=== PATIENT | male | born 1965 | race Caucasian/White ===

== ENCOUNTER 2017-06-14 08:44 | Inpatient (IN) | payer OTHER ==
[~2017-06-14] VITALS: Ht 182.9 cm; Wt 78.0 kg
[2017-06-14] VITALS (9 sets, daily range): BP systolic 117–125; BP diastolic 62–96; PULSE 66–92; RESP 15–22; TEMP 98–98.4; O2SAT 99–100
[2017-06-14] MEDS ORDERED: ceFAZolin 2 GM PREMIX 50 ML ONE (08:53)
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
[2017-06-14 09:13] LABS: AUTOMATED NEUTROPHIL # 2.7 TH/MM3 (1.8-7.7); BASOPHIL % 0.3 % (0.0-2.0); EOSINOPHIL # 0.1 TH/MM3 (0-0.4); EOSINOPHIL % 2.4 % (0.0-4.0); HEMATOCRIT 43.1 % (39.0-51.0); HEMOGLOBIN 14.6 GM/DL (13.0-17.0); LYMPH % 35.5 % (9.0-44.0); LYMPHOCYTE # 1.9 TH/MM3 (1.0-4.8); MEAN CELL VOLUME 95.4 FL (80.0-100.0); MEAN CORPUSCULAR HEMOGLOBIN 32.4 PG (27.0-34.0); MEAN CORPUSCULAR HGB CONC 33.9 % (32.0-36.0); MEAN PLATELET VOLUME 8.9 FL (7.0-11.0); MONO % 10.1 % (0.0-8.0); MONOCYTE # 0.5 TH/MM3 (0-0.9); NEUT % 51.7 % (16.0-70.0); PLATELET COUNT 215 TH/MM3 (150-450); RED BLOOD COUNT 4.51 MIL/MM3 (4.50-5.90); RED CELL DISTRIBUTION WIDTH 12.5 % (11.6-17.2); WHITE BLOOD COUNT 5.3 TH/MM3 (4.0-11.0)
[2017-06-14] MEDS ORDERED: MIDAZOLAM HCL 5 MG/ML VIAL (1 ML) ONE (09:14)
[2017-06-14 09:23] LABS: PROTHROMBIN TIME - PATIENT 9.8 SEC (9.8-11.6)
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
[2017-06-14] MEDS ORDERED: IOHEXOL 350 MG/ML 10 ML VIAL (for RAD DIAG) IVCONTRAST ONE (09:40)
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
[2017-06-14] MEDS ORDERED: LISI-515 PO (09:54)
[2017-06-14] MEDS ORDERED: HYDR-3580 PO (09:54)
[2017-06-14] MEDS ORDERED: OMEP20TA93 PO (09:54)
[2017-06-14] MEDS ORDERED: ASPI-516 CHEW (09:54)
[2017-06-14] MEDS ORDERED: NAPR500T2 PO (09:54)
[2017-06-14] MEDS ORDERED: AMPH1TAB83 PO (09:54)
[2017-06-14] MEDS ORDERED: CLAR10CA3 PO (09:54)
[2017-06-14] MEDS ORDERED: LORA1TAB12 PO (09:54)
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
[2017-06-14] MEDS ORDERED: MAGNESIUM HYDROXIDE SUSP 30 ML CUP PO PRN (11:30)
[2017-06-14] MEDS ORDERED: LORazepam 1 MG TAB PO PRN ×2 (11:30→14:30)
[2017-06-14] MEDS ORDERED: MISCELLANEOUS NURSING INFORMATION XX SCH (11:30)
[2017-06-14] MEDS ORDERED: ACETAMINOPHEN/HYDROcodone 325 MG/5 MG TAB PO PRN (11:30)
[2017-06-14] MEDS ORDERED: FLUMAZENIL 0.5 MG/5 ML VIAL IV PUSH PRN (11:30)
[2017-06-14] MEDS ORDERED: LORazepam 2 MG TAB PO PRN (11:30)
[2017-06-14] MEDS ORDERED: SODIUM CHLORIDE 0.9% FLUSH 10 ML FLUSH IV FLUSH PRN (11:30)
[2017-06-14] MEDS ORDERED: ONDANSETRON HCL 4 MG/2 ML VIAL IV PUSH PRN (11:30)
[2017-06-14] MEDS ORDERED: LORazepam 2 MG/ML VIAL IV PUSH PRN ×4 (11:30)
[2017-06-14] MEDS ORDERED: CHLORHEXIDINE GLUCONATE 2 % 1 PACK (2 CLOTHS) TOP PRN (11:30)
[2017-06-14] MEDS ORDERED: ENALAPRILAT 1.25 MG/ML VIAL IV PUSH PRN (11:30)
[2017-06-14] MEDS ORDERED: MORPHINE SULFATE 4 MG/ML INJ IV PUSH PRN (11:30)
[2017-06-14] MEDS: BACITRACIN TOP OINT 15 GM TUBE TOP SCH ×2 (12:19→20:47)
[2017-06-14] MEDS: SODIUM CHLOR 0.9% 1000 ML INJ 1,000 ML IV SCH (12:20)
[2017-06-14] MEDS: MULTIVITAMIN TAB PO SCH (12:22)
[2017-06-14] MEDS: FOLIC ACID 1 MG TAB PO SCH (12:22)
[2017-06-14] MEDS: THIAMINE HCL 100 MG TAB PO SCH (12:22)
[2017-06-14] MEDS ORDERED: HALOPERIDOL LACTATE 5 MG/ML AMP IV PUSH PRN (13:15)
[2017-06-14] MEDS: levETIRAcetam INJ 500 MG in SODIUM CHLORIDE 0.9% INJ 100 ML IV SCH (14:30)
[2017-06-14] MEDS: LISINOPRIL 20 MG TAB PO SCH (14:30)
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
[2017-06-14] MEDS: METHOCARBAMOL 500 MG TAB PO SCH ×2 (17:49→20:48)
[2017-06-14] MEDS: ACETAMINOPHEN/HYDROcodone 325 MG/7.5 MG TAB PO PRN (17:49)
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
[2017-06-14] MEDS: DOCUSATE SODIUM 100 MG CAP PO SCH (20:46)
[2017-06-14] MEDS: ACETAMINOPHEN/HYDROcodone 325 MG/10 MG TAB PO PRN (22:15)
[2017-06-15] VITALS: PULSE 74
[2017-06-15 02:00] VITALS: PULSE 77
[2017-06-15] MEDS: levETIRAcetam INJ 500 MG in SODIUM CHLORIDE 0.9% INJ 100 ML IV SCH (02:21)
[2017-06-15 04:00] VITALS: PULSE 78
[2017-06-15] MEDS ORDERED: CHLORHEXIDINE GLUCONATE 2 % 1 PACK (2 CLOTHS) TOP SCH (04:00)
[2017-06-15] MEDS: ACETAMINOPHEN/HYDROcodone 325 MG/10 MG TAB PO PRN ×2 (05:22→10:37)
[2017-06-15] MEDS: METHOCARBAMOL 500 MG TAB PO SCH (05:23)
[2017-06-15 06:00] VITALS: PULSE 70
[2017-06-15 06:36] LABS: ALBUMIN 3.1 GM/DL (3.4-5.0); AST (GOT) 18 U/L (15-37); BLOOD UREA NITROGEN 12 MG/DL (7-18); CALCIUM 8.3 MG/DL (8.5-10.1); CHLORIDE 107 MEQ/L (98-107); CREATININE 0.73 MG/DL (0.60-1.30); GLOMERULAR FILTRATION RATE 112 ML/MIN (>89); GLUCOSE,RANDOM 112 MG/DL (74-106); SODIUM (NA) 140 MEQ/L (136-145)
[2017-06-15 06:40] LABS: ALKALINE PHOSPHATASE 40 U/L (45-117); ALT (GPT) 27 U/L (12-78); TOTAL BILIRUBIN ADULT 0.5 MG/DL (0.2-1.0); TOTAL PROTEIN 5.9 GM/DL (6.4-8.2)
[2017-06-15] MEDS ORDERED: MORPHINE SULFATE 4 MG/ML INJ IV PUSH PRN (07:00)
[2017-06-15] MEDS: SODIUM CHLOR 0.9% 1000 ML INJ 1,000 ML IV SCH (07:18)
[2017-06-15 08:00] VITALS: BP 111/72; PULSE 89; RESP 24; TEMP 98.3; O2SAT 98
[2017-06-15] MEDS: THIAMINE HCL 100 MG TAB PO SCH (08:41)
[2017-06-15] MEDS: FOLIC ACID 1 MG TAB PO SCH (08:41)
[2017-06-15] MEDS: DOCUSATE SODIUM 100 MG CAP PO SCH (08:42)
[2017-06-15] MEDS: LISINOPRIL 20 MG TAB PO SCH (08:42)
[2017-06-15] MEDS: BACITRACIN TOP OINT 15 GM TUBE TOP SCH (08:42)
[2017-06-15] MEDS: MULTIVITAMIN TAB PO SCH (08:42)
[2017-06-15] MEDS: ACETAMINOPHEN/HYDROcodone 325 MG/7.5 MG TAB PO PRN ×2 (08:43→11:23)
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
[2017-06-15] MEDS ORDERED: POLYETHYLENE GLYCOL 17 GM PKG PO SCH (09:00)
[2017-06-15] MEDS ORDERED: DOCUSATE SODIUM 50 MG/SENNA 8.6 MG TAB PO SCH (09:00)
[2017-06-15] MEDS ORDERED: PANTOPRAZOLE SOD 40 MG DELAYED RELEASE TAB PO SCH (09:00)
[2017-06-15] MEDS ORDERED: INFLUENZA VIRUS VACCINE (QUADRIVALENT) 0.5 ML SYR IM ONE (10:00)
--- NOTE | 2017-06-15 11:45 | OTSOAPIP ---
TIME SESSION COMPLETED: 1000 TREATMENT TIME: 0 MINS. CHART REVIEWED. RN REPORTS THAT PATIENT IS INDEPENDENT AND BEING DISCHARGED. NO OCCUPATIONAL THERAPY EVALUATION REQUIRED. Therapist: Carmina Truong OTR/L Signature on file
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
== END 2017-06-15 12:17 | disposition home or self-care (01) | DRG 84 ==
LOC: NEPI 08:44 → EDBD 09:23 → NEDH 09:23 → N03B 10:49
PROVIDERS: ADMIT Surgery; ATTEND Surgery
DX: S06.2X9A Diffuse traumatic brain injury with loss of consciousness of unspecified duration, initial encounter (principal); F41.9 Anxiety disorder, unspecified; S42.121A Displaced fracture of acromial process, right shoulder, initial encounter for closed fracture; M50.30 Other cervical disc degeneration, unspecified cervical region; R41.2 Retrograde amnesia; S80.212A Abrasion, left knee, initial encounter; S80.211A Abrasion, right knee, initial encounter; R40.2411 Glasgow coma scale score 13-15, in the field [EMT or ambulance]; M51.36 Other intervertebral disc degeneration, lumbar region; F12.90 Cannabis use, unspecified, uncomplicated; F10.10 Alcohol abuse, uncomplicated; V29.9XXA Motorcycle rider (driver) (passenger) injured in unspecified traffic accident, initial encounter; Y92.410 Unspecified street and highway as the place of occurrence of the external cause; Y90.0 Blood alcohol level of less than 20 mg/100 ml
CPT/HCPCS: 70450; 71045; 71260; 72125; 72170; 73020; 74177; 80053; 80307; 82435; 82565; 82947; 84132; 84295; 84520; 85025; 85610; 85730; 86850; 86900; 86901; 87641; 90471; 96374; 96375; 99291; G0390; J0690; J1953; J2250; J2270; J2405; J7030; L0150; Q9967

== ENCOUNTER 2017-07-18 04:18 | Inpatient (IN) | payer OTHER ==
[~2017-07-18] VITALS: Ht 182.9 cm; Wt 72.0 kg
[~2017-07-18 04:18] MED LIST: AMPH1TAB83 PO; CLAR10CA3 PO; HYDR-3580 PO; LISI-515 PO; LORA1TAB12 PO; OMEP20TA93 PO
[2017-07-18 04:24] VITALS: BP 145/82; PULSE 97; RESP 17; TEMP 97.8; O2SAT 96
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
[2017-07-18] MEDS ORDERED: ONDANSETRON HCL 4 MG/2 ML VIAL IV ONE ×2 (05:00→12:00)
[2017-07-18] MEDS ORDERED: HYDROmorphone HCL PF 2 MG/ML VIAL IV PUSH ONE (05:00)
[2017-07-18] MEDS: SODIUM CHLOR 0.9% 1000 ML INJ 1,000 ML IV SCH ×2 (05:11→13:00)
[2017-07-18] MEDS ORDERED: HYDROmorphone HCL PF 1 MG/ML VIAL IV PUSH PRN (05:15)
[2017-07-18] MEDS ORDERED: ONDANSETRON HCL 4 MG/2 ML VIAL IV PUSH PRN ×2 (05:15→06:15)
[2017-07-18] MEDS ORDERED: ENALAPRILAT 1.25 MG/ML VIAL IV PUSH PRN (06:15)
[2017-07-18] MEDS ORDERED: ACETAMINOPHEN/HYDROcodone 325 MG/7.5 MG TAB PO PRN ×2 (06:15)
[2017-07-18] MEDS ORDERED: LACTULOSE SYRUP 20 GM/30 ML CUP PO PRN (06:15)
[2017-07-18] MEDS ORDERED: ACETAMINOPHEN 325 MG TAB PO PRN (06:15)
[2017-07-18] MEDS ORDERED: SODIUM CHLORIDE 0.9% FLUSH 10 ML FLUSH IV FLUSH PRN (06:15)
[2017-07-18] MEDS ORDERED: LORazepam 1 MG TAB PO PRN (06:15)
[2017-07-18] MEDS ORDERED: MORPHINE SULFATE 4 MG/ML INJ IV PRN (06:45)
[2017-07-18 07:33] VITALS: O2SAT 98
[2017-07-18 07:35] VITALS: BP 167/90; PULSE 80; RESP 17; O2SAT 99
[2017-07-18] MEDS: POLYETHYLENE GLYCOL 17 GM PKG PO SCH (08:50)
[2017-07-18] MEDS: LORATADINE 10 MG TAB PO SCH (08:50)
[2017-07-18] MEDS: LISINOPRIL 20 MG TAB PO SCH (08:51)
[2017-07-18] MEDS: PANTOPRAZOLE SOD 20 MG DELAYED RELEASE TAB PO SCH (08:51)
[2017-07-18] MEDS ORDERED: DOCUSATE SODIUM 50 MG/SENNA 8.6 MG TAB PO SCH (09:00)
[2017-07-18] MEDS: BACITRACIN TOP OINT 15 GM TUBE TOP SCH (09:00)
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
--- NOTE | 2017-07-18 09:58 | RADRPT ---
EXAM DATE/TIME: 07/18/2017 09:14 [place] COMPARISON: No previous studies available for comparison. INDICATIONS : Fall. Syncope. MEDICAL HISTORY : Hypercholesterolemia. Hypertension. Pulmonary embolism. Substance use. SURGICAL HISTORY : Left inguinal hernia. Right rotator cuff surgery. ENCOUNTER: Initial ACUITY: 2 days PAIN SCORE: 6/10 LOCATION: Bilateral neck PEAK SYSTOLIC VELOCITIES (cm/sec): ICA/CCA RATIO: Right: 1.1 Left: 1.1 ICA: Right: 86 Left: 87 CCA: Right: 76 Left: 79 ECA: Right: 64 Left: 97 VERTEBRAL: Right: 48 antegrade Left: 60 antegrade Elevated flow velocities and ICA/CCA ratios have been found to correlate with increased degrees of vessel stenosis, calculated as percentage of diameter relative to a normal segment of distal ICA/CCA FINDINGS: RIGHT CAROTID: No significant stenosis is visualized. The waveforms are within normal limits. LEFT CAROTID: No significant stenosis is visualized. The waveforms are within normal limits. VERTEBRAL ARTERIES: Antegrade flow is seen in both vertebral arteries. MISCELLANEOUS: None. CONCLUSION: Negative for hemodynamically significant stenosis Manpreet Packer MD FACR on July 18, 2017 at 9:55 Board Certified Radiologist. This report was verified electronically.
[2017-07-18 10:16] VITALS: BP 164/84; PULSE 68; RESP 15; O2SAT 100
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
[2017-07-18] MEDS ORDERED: SODIUM CHLOR 0.9% 250 ML INJ 250 ML IV ONE (12:00)
[2017-07-18] MEDS ORDERED: ESMOLOL HCL 100 MG/10 ML VIAL IV ONE (12:00)
[2017-07-18] MEDS ORDERED: PROPOFOL 200 MG/20 ML AMP IV ONE (12:00)
[2017-07-18] MEDS ORDERED: LIDOCAINE HCL 1% PF 5 ML SYRINGE OTHER ONE (12:00)
[2017-07-18] MEDS ORDERED: LACTATED RINGER'S 1000 ML IV PRN (12:30)
[2017-07-18] MEDS ORDERED: METOPROLOL TARTRATE 25 MG TAB PO PRN (12:30)
[2017-07-18] MEDS ORDERED: POVIDONE IODINE 5% (ANTISEPSIS KIT) 4 APPLICATIONS EACH NARE PRN (12:30)
[2017-07-18] MEDS ORDERED: CHLORHEXIDINE GLUCONATE 2 % 1 PACK (2 CLOTHS) TOPICAL PRN (12:30)
[2017-07-18] MEDS ORDERED: SODIUM CHLORID 0.9% 500 ML IV PRN (12:30)
[2017-07-18] MEDS ORDERED: BUPIVACAINE/EPINEPHRINE 0.5% PF 30 ML VIAL ONE (12:42)
[2017-07-18] MEDS ORDERED: GENTAMICIN SULFATE 80 MG/2 ML VIAL ONE (12:42)
[2017-07-18] MEDS ORDERED: ceFAZolin 2 GM PREMIX 50 ML ONE (13:05)
[2017-07-18] MEDS ORDERED: VANCOMYCIN HCL 1000 MG VIAL ONE (13:05)
[2017-07-18] MEDS: DEXT 5%-NACL 0.45% 1000 ML INJ 1,000 ML IV SCH (14:13)
[2017-07-18] MEDS ORDERED: ACETAMINOPHEN/HYDROcodone 325 MG/10 MG TAB PO PRN (14:15)
[2017-07-18] MEDS ORDERED: MISCELLANEOUS NURSING INFORMATION XX PRN (14:15)
[2017-07-18] MEDS ORDERED: ONDANSETRON HCL 4 MG/2 ML VIAL IVP PRN (14:15)
[2017-07-18] MEDS ORDERED: MAGNESIUM HYDROXIDE SUSP 30 ML CUP PO PRN (14:15)
[2017-07-18] MEDS ORDERED: NALOXONE HCL 0.4 MG/ML AMP IV PUSH PRN (14:15)
[2017-07-18] MEDS ORDERED: MISCELLANEOUS PHARMACY INFORMATION XX ONE (14:15)
[2017-07-18] MEDS ORDERED: Post-op Orders (for Pharmacy) XX ONE (14:15)
[2017-07-18] MEDS ORDERED: diphenhydrAMINE HCL 25 MG CAP PO PRN (14:15)
--- NOTE | 2017-07-18 14:17 | PD.OP ---
cc: Bismark Barton MD Operative Report Date of Surgery: Jul 18, 2017 Preoperative Diagnosis: Left distal radius, intra-articular comminuted fracture, 3 part Postoperative Diagnosis: Same Procedure: LEFT distal radius open reduction and internal fixation of three-part intra- articular fracture. Anesthesia: Gen. Surgeon: Bismark Barton Service Liaison Representative(s): JOSE Raymundo The surgical procedure was assisted by my Advanced Registered Nurse Practitioner. My PERSONAL LINES INSURANCE ADVISOR presence was necessary throughout this case for the manipulation and positioning of the surgical extremity. My PERSONAL LINES INSURANCE ADVISOR was assisting me throughout the duration of this procedure. The skill set of an Advance Registered Nurse Practitioner was medically necessary to complete this procedure. During the surgical case, the photocopier technician was working at the back table and the Advance Registered Nurse Practitioner was directly assisting me. Operation and Findings: Tourniquet time: 21 minutes at 250 mmHg of pressure Estimated blood loss: 10 cc The patient received intravenous vancomycin and Ancef. After the appropriate anesthesia was administered, the patient's arm was prepped and draped in the usual sterile fashion. Local anesthetic was given, and the arm was exsanguinated. The tourniquet was raised to 250 mmHg of pressure. We made a standard incision over the volar aspect of the forearm. We then dissected through the flexor carpi radialis sub- sheath. The pronator quadratus was reflected. We now visualized the distal radius fracture very well. The fracture was anatomically reduced both visually and via fluoroscopy. We provisionally held the fracture reduced and then applied a large Synthes precontoured distal radius plate into the appropriate position. The plate was secured to the distal radius first with the sliding screw hole. This was then followed by locking screws distally and proximally. We took final fluoroscopic imaging of the wrist. We found no intra-articular penetration of the screws. The patient had full range of motion of the wrist with no crepitus. The tourniquet was released and hemostasis was achieved. The patient had a 2+ radial pulse. We irrigated the incision thoroughly. We then closed skin with 2 -0 Vicryl followed by 3-0 nylon. The arm was dressed and a volar splint was applied. The postoperative plan is to start early range of motion of the wrist. Bismark Barton MD Jul 18, 2017 14:17
[2017-07-18] MEDS ORDERED: HYDR-3583 PO (14:18)
[2017-07-18] MEDS ORDERED: MIDAZOLAM HCL 2 MG/2 ML VIAL ONE ×2 (14:36→14:51)
[2017-07-18] MEDS ORDERED: DO NOT ADM ANY ANTICOAGULANT DRUGS PRN (14:40)
--- NOTE | 2017-07-18 15:06 | RADRPT ---
EXAM DATE/TIME: 07/18/2017 14:01 [facility] COMPARISON: No previous studies available for comparison. INDICATIONS : Reduction with screw and plate placement left wrist. MEDICAL HISTORY : Hypercholesterolemia. Hypertension. Pulmonary embolism. Substance use. SURGICAL HISTORY : Left inguinal hernia. Right rotator cuff surgery. ENCOUNTER: Subsequent ACUITY: 1 day PAIN SCORE: Non-responsive. LOCATION: Left Wrist. FINDINGS: Plaque with screws is seen bridging the fracture distal radius. Limited anatomic. Screw is seen syed dging the base of the first metacarpal. CONCLUSION: Anatomic alignment. Manpreet Packer MD FACR on July 18, 2017 at 15:03 Board Certified Radiologist. This report was verified electronically.
[2017-07-18] MEDS ORDERED: *morphine SULFATE 10 MG/ML PERIprocedure ONLY ONE (15:23)
[2017-07-18] MEDS ORDERED: *MEPERIDINE 25 MG INJ VIAL PERIprocedural Use ONLY ONE (15:27)
[2017-07-18] MEDS ORDERED: HYDROmorphone HCL PF 2 MG/ML VIAL ONE ×2 (16:23→17:58)
--- NOTE | 2017-07-18 16:53 | OTSOAPIP ---
TIME SESSION COMPLETED: 1645 PATIENT WENT OFF FLOOR FOR SURGERY AND IS STILL NOT ASSIGNED TO A ROOM AT TIME OF ATTEMPT. DOES NOT HAVE A CORRECT CURRENT LOCATION IN ELECTRONIC MEDICAL RECORD. WILL FOLLOW UP WITH PATIENT TOMORROW. INTERDISCIPLINARY COMMUNICATION: REVIEWED ELECTRONIC MEDICAL RECORD, SPOKE WITH FEDERICO CLARK Therapist: Rosie Razo OTR/L Signature on file
--- NOTE | 2017-07-18 19:43 | EKG ---
Date Performed: 07/18/2017 Time Performed: 11:48:31 PTAGE: 52 years EKG: SINUS BRADYCARDIA WITH OCCASIONAL SUPRAVENTRICULAR PREMATURE COMPLEXES MODERATE INTRAVENTRI CULAR CONDUCTION DELAY BORDERLINE ECG NO PREVIOUS TRACING DOCTOR: Anthony Kendall Interpretating Date/Time 07/18/2017 19:42:20
[2017-07-18 19:55] VITALS: BP 178/80; PULSE 65; RESP 18; TEMP 96.6; O2SAT 97
[2017-07-18] MEDS: DOCUSATE SODIUM 50 MG/SENNA 8.6 MG TAB PO SCH (20:00)
[2017-07-18] MEDS: MORPHINE SULFATE 4 MG/ML INJ IV PUSH PRN (20:00)
[2017-07-18] MEDS: ACETAMINOPHEN/HYDROcodone 325 MG/10 MG TAB PO PRN (22:24)
[2017-07-18 23:00] VITALS: BP 153/77; PULSE 65; RESP 18; TEMP 97.5; O2SAT 98
[2017-07-19] VITALS (8 sets, daily range): BP systolic 124–153; BP diastolic 76–91; PULSE 68–97; RESP 17–19; TEMP 97.9–99.6; O2SAT 92–99
[2017-07-19] MEDS: DEXT 5%-NACL 0.45% 1000 ML INJ 1,000 ML IV SCH (03:43)
[2017-07-19 06:13] LABS: AUTOMATED NEUTROPHIL # 7.1 TH/MM3 (1.8-7.7); EOSINOPHIL % 0.1 % (0.0-4.0); HEMATOCRIT 34.8 % (39.0-51.0); HEMOGLOBIN 11.7 GM/DL (13.0-17.0); LYMPH % 11.2 % (9.0-44.0); MEAN CELL VOLUME 96.4 FL (80.0-100.0); MEAN CORPUSCULAR HEMOGLOBIN 32.5 PG (27.0-34.0); MEAN CORPUSCULAR HGB CONC 33.7 % (32.0-36.0); MEAN PLATELET VOLUME 9.2 FL (7.0-11.0); MONO % 8.7 % (0.0-8.0); MONOCYTE # 0.8 TH/MM3 (0-0.9); PLATELET COUNT 181 TH/MM3 (150-450); RED BLOOD COUNT 3.61 MIL/MM3 (4.50-5.90); RED CELL DISTRIBUTION WIDTH 12.1 % (11.6-17.2); WHITE BLOOD COUNT 8.9 TH/MM3 (4.0-11.0)
[2017-07-19] MEDS: MORPHINE SULFATE 4 MG/ML INJ IV PUSH PRN ×2 (08:35→23:47)
[2017-07-19] MEDS: DOCUSATE SODIUM 50 MG/SENNA 8.6 MG TAB PO SCH ×2 (08:40→20:38)
[2017-07-19] MEDS: MULTIVITAMINS/MINERALS THERAPEUTIC TAB PO SCH (08:41)
[2017-07-19] MEDS: PANTOPRAZOLE SOD 20 MG DELAYED RELEASE TAB PO SCH (08:41)
[2017-07-19] MEDS: LISINOPRIL 20 MG TAB PO SCH (08:41)
[2017-07-19] MEDS: POLYETHYLENE GLYCOL 17 GM PKG PO SCH (08:44)
[2017-07-19] MEDS: LORATADINE 10 MG TAB PO SCH (08:46)
[2017-07-19] MEDS: BACITRACIN TOP OINT 15 GM TUBE TOP SCH ×2 (09:00→21:20)
--- NOTE | 2017-07-19 09:15 | RADRPT ---
EXAM DATE/TIME: 07/19/2017 09:01 [facility] COMPARISON: CT BRAIN W/O CONTRAST, June 14, 2017, 8:48. INDICATIONS : Fell 3-4 feet from ladder, landed face first. RADIATION DOSE: 38.68 CTDIvol (mGy) MEDICAL HISTORY : Cardiovascular disease. Hypertension. SURGICAL HISTORY : None. ENCOUNTER: Initial ACUITY: 1 day PAIN SCALE: 3/10 LOCATION: Left facial TECHNIQUE: Multiple contiguous axial images were obtained of the head. Using automated exposure control and adj ustment of the mA and/or kV according to patient size, radiation dose was kept as low as reasonably a chievable to obtain optimal diagnostic quality images. DICOM format image data is available electro nically for review and comparison. FINDINGS: There is a nondepressed fracture involving the left frontal bone that courses along the roof of the l eft orbit. No other fracture is appreciated. Considerable periorbital soft tissue swelling on the lef t. The globe is intact. No retro-bulbar hematoma or fluid. The intracranial contents are unremarkable . No hemorrhage, mass, or acute infarction. There is a small volume pneumocephaly as the left frontal fracture does extend through the left frontal sinus. Mucosal thickening involving the left sphenoid sinus and scattered ethmoid air cells bilaterally. Mastoid air cells are clear. Subcutaneous air with in the left periorbital soft tissues. CONCLUSION: 1. Trauma to the left periorbital region with a fracture that is nondepressed through the left fronta l bone and left roof of orbit generating subcutaneous air and small volume pneumocephaly. No intracra nial hemorrhage. Sven Segura Jr., MD on July 19, 2017 at 9:07 Board Certified Radiologist. This report was verified electronically.
[2017-07-19 09:21] LABS: ALBUMIN 3.2 GM/DL (3.4-5.0); ALT (GPT) 21 U/L (12-78); AST (GOT) 19 U/L (15-37); BICARBONATE 26.2 MEQ/L (21.0-32.0); BLOOD UREA NITROGEN 7 MG/DL (7-18); CALCIUM 8.4 MG/DL (8.5-10.1); CHLORIDE 101 MEQ/L (98-107); CREATININE 0.83 MG/DL (0.60-1.30); GLOMERULAR FILTRATION RATE 97 ML/MIN (>89); GLUCOSE,RANDOM 147 MG/DL (74-106); SODIUM (NA) 135 MEQ/L (136-145)
[2017-07-19 09:24] LABS: ALKALINE PHOSPHATASE 52 U/L (45-117); TOTAL BILIRUBIN ADULT 0.5 MG/DL (0.2-1.0); TOTAL PROTEIN 6.3 GM/DL (6.4-8.2)
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
[2017-07-19] MEDS: ACETAMINOPHEN/HYDROcodone 325 MG/10 MG TAB PO PRN (10:48)
--- NOTE | 2017-07-19 11:53 | MB ---
cc: JAY MILLER D.D.S. DATE OF CONSULTATION: 07/19/2017 1965 REASON FOR CONSULTATION I was asked to evaluate a 52-year-old male who fell off a ladder and landed face first. HISTORY OF PRESENT ILLNESS He originally came to [facility] and was transferred up to [place]. He was taken to the operating room yesterday for orthopedics. My situation, I ordered an orbital scan after evaluating him down in the OR. He has a nondisplaced, nondepressed left frontal bone and a left orbital roof. He has no indication for any surgery. Pupils are equal, round, reactive to light and accommodation. Extraocular muscles are intact. Visual acuity is grossly intact with some swelling obviously and ecchymosis. His maxilla and mandible are intact. He has no surgical intervention from maxillofacial standpoint. Follow him up on an outpatient basis in the office. Any questions regarding the patient's care, please let me know. ALFONSO Santiago/CONTRERAS /11:20 AM /11:30 AM
--- NOTE | 2017-07-19 12:39 | PD.ORT.PN ---
Subjective Post Op Day #: 1 Subjective Remarks Patient is resting in bed in NAD. Patient states he is having some mild pain to the left wrist. Objective Vitals Vital Signs Date Time Temp Pulse Resp B/P (MAP) Pulse Ox O2 Delivery O2 Flow Rate FiO2 07/19/17 12:00 99.0 84 17 124/76 (92) 92 07/19/17 08:00 98.4 68 17 153/88 (109) 99 07/19/17 03:00 97.9 71 18 153/91 (111) 96 07/18/17 23:00 97.5 65 18 153/77 (102) 98 07/18/17 19:55 96.6 65 18 178/80 (112) 97 07/18/17 19:15 98.3 84 20 135/81 (99) 96 Room Air 07/18/17 18:00 60 20 155/89 (111) 96 Room Air 07/18/17 17:00 60 20 185/88 (120) 96 Room Air 07/18/17 15:45 62 20 165/91 (115) 96 Room Air 07/18/17 15:30 65 20 183/88 (119) 96 Room Air 07/18/17 15:15 81 20 180/88 (118) 96 Room Air 07/18/17 15:00 82 20 185/92 (123) 95 Room Air 07/18/17 14:43 98.1 77 20 201/97 (131) 95 Room Air I/O 07/18/17 07/18/17 07/18/17 07/19/17 07/19/17 07/19/17 07:00 15:00 23:00 07:00 15:00 23:00 Intake Total 650 ml 720 ml 360 ml Output Total 10 ml Balance 640 ml 720 ml 360 ml Intake Oral 720 ml 360 ml IV Total 650 ml Output Estimated Blood Loss 10 ml # Voids 1 3 # Bowel Movements 0 0 Result Diagram: 07/19/17 0829 07/19/17 0909 Imaging Last [address] 07/19/17 0000 Signed Impressions: Service Date/Time: July 09:01 - CONCLUSION: 1. Trauma to the left periorbital region with a fracture that is nondepressed through the left frontal bone and left roof of orbit generating subcutaneous air and small volume pneumocephaly. No intracranial hemorrhage. Sven Segura Jr., MD Procedures Left distal radius ORIF Objective Remarks Splint and dressing is C/D/I. Patient moves all fingers and has good sensation to light touch. BCR X 5. Mild swelling to the fingers. Assessment & Plan Ortho Post Op Day #: 1 Problem List: Assessment and Plan POD #1: Left distal radius fracture with ORIF 1. NWB LUE. Use sling as needed for support and comfort. 2. Ice to the left wrist PRN 3. Stable for discharge home per ortho when medically cleared. 4. F/U in the office with Dr. Barton and JOSE Garcia in 1-2 weeks. Moise Sylvester Jul 19, 2017 12:39
[2017-07-19] MEDS: BACITRACIN OINT 0.9 GM PKT TOPICAL SCH (13:00)
[2017-07-19] MEDS: ENOXAPARIN SODIUM 30 MG/0.3 ML SYRINGE SQ SCH (13:00)
[2017-07-19] MEDS: ACETAMINOPHEN/HYDROcodone 325 MG/7.5 MG TAB PO PRN ×2 (14:42→20:39)
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
[2017-07-19] MEDS ORDERED: ATORVASTATIN 40 MG TAB PO SCH (21:00)
[2017-07-20] VITALS: PULSE 81
[2017-07-20] MEDS: ENOXAPARIN SODIUM 30 MG/0.3 ML SYRINGE SQ SCH ×2 (01:00→13:00)
[2017-07-20] MEDS: ACETAMINOPHEN/HYDROcodone 325 MG/7.5 MG TAB PO PRN ×4 (02:17→14:53)
[2017-07-20 04:00] VITALS: BP 134/81; PULSE 81; PULSE 89; RESP 18; TEMP 98.6; O2SAT 99
[2017-07-20 05:35] LABS: AUTOMATED NEUTROPHIL # 6.5 TH/MM3 (1.8-7.7); BASOPHIL % 0.2 % (0.0-2.0); EOSINOPHIL # 0.1 TH/MM3 (0-0.4); EOSINOPHIL % 0.9 % (0.0-4.0); HEMATOCRIT 37.9 % (39.0-51.0); HEMOGLOBIN 13.4 GM/DL (13.0-17.0); LYMPH % 16.2 % (9.0-44.0); LYMPHOCYTE # 1.5 TH/MM3 (1.0-4.8); MEAN CELL VOLUME 93.5 FL (80.0-100.0); MEAN CORPUSCULAR HGB CONC 35.3 % (32.0-36.0); MONO % 9.9 % (0.0-8.0); MONOCYTE # 0.9 TH/MM3 (0-0.9); NEUT % 72.8 % (16.0-70.0); PLATELET COUNT 206 TH/MM3 (150-450); RED BLOOD COUNT 4.05 MIL/MM3 (4.50-5.90); RED CELL DISTRIBUTION WIDTH 12.2 % (11.6-17.2)
[2017-07-20 05:49] LABS: BICARBONATE 28.4 MEQ/L (21.0-32.0); CALCIUM 8.4 MG/DL (8.5-10.1); CREATININE 0.71 MG/DL (0.60-1.30)
[2017-07-20] MEDS ORDERED: DOCU8.6T PO (06:47)
[2017-07-20] MEDS: MORPHINE SULFATE 4 MG/ML INJ IV PUSH PRN (07:29)
[2017-07-20 08:00] VITALS: BP 132/58; PULSE 79; RESP 14; TEMP 99.3; O2SAT 97
[2017-07-20] MEDS: BACITRACIN OINT 0.9 GM PKT TOPICAL SCH (09:00)
[2017-07-20] MEDS: POLYETHYLENE GLYCOL 17 GM PKG PO SCH (09:46)
[2017-07-20] MEDS: MULTIVITAMINS/MINERALS THERAPEUTIC TAB PO SCH (09:46)
[2017-07-20] MEDS: LORATADINE 10 MG TAB PO SCH (09:46)
[2017-07-20] MEDS: LISINOPRIL 20 MG TAB PO SCH (09:46)
[2017-07-20] MEDS: PANTOPRAZOLE SOD 20 MG DELAYED RELEASE TAB PO SCH (09:46)
[2017-07-20] MEDS: DOCUSATE SODIUM 50 MG/SENNA 8.6 MG TAB PO SCH (09:46)
[2017-07-20] MEDS: BACITRACIN TOP OINT 15 GM TUBE TOP SCH (09:47)
[2017-07-20 10:21] VITALS: PULSE 76
[2017-07-20 12:00] VITALS: BP 145/92; PULSE 77; RESP 15; TEMP 95.8; O2SAT 99
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
== END 2017-07-20 15:28 | disposition home or self-care (01) | DRG 511 ==
LOC: NEPE 04:18 → NEDA 05:17 → N06A 19:36
PROVIDERS: ADMIT Surgery; ATTEND Surgery
PROC: 0PSJ04Z Reposition Left Radius with Internal Fixation Device, Open Approach (ICD-10-PCS; principal; 2017-07-18 12:57)
DX: S52.572A Other intraarticular fracture of lower end of left radius, initial encounter for closed fracture (principal); S02.0XXA Fracture of vault of skull, initial encounter for closed fracture; I10 Essential (primary) hypertension; S06.0X9A Concussion with loss of consciousness of unspecified duration, initial encounter; S02.82XA Fracture of other specified skull and facial bones, left side, initial encounter for closed fracture; W11.XXXA Fall on and from ladder, initial encounter; E78.00 Pure hypercholesterolemia, unspecified; G89.29 Other chronic pain; M54.9 Dorsalgia, unspecified; F17.200 Nicotine dependence, unspecified, uncomplicated; S01.112A Laceration without foreign body of left eyelid and periocular area, initial encounter; M50.30 Other cervical disc degeneration, unspecified cervical region; Z87.820 Personal history of traumatic brain injury; Z79.891 Long term (current) use of opiate analgesic
CPT/HCPCS: 70450; 73110; 76000; 80048; 80053; 82948; 85025; 93005; 93880; 94150; 96374; 96375; C1713; J0690; J1170; J1580; J2175; J2250; J2270; J2405; J3010; J3370; J7030; J7050

== ENCOUNTER 2017-10-26 17:45 | Emergency (ER) | payer OTHER ==
[~2017-10-26] VITALS: Ht 175.3 cm; Wt 80.0 kg
[~2017-10-26 17:45] MED LIST changes: +DOCU8.6T PO; -HYDR-3580 PO; +HYDR-3583 PO
[2017-10-26 17:52] VITALS: BP 115/75; PULSE 87; RESP 16; O2SAT 99
[2017-10-26] MEDS ORDERED: BUSP10TA PO (17:59)
[2017-10-26] MEDS ORDERED: LIPI40TA PO (17:59)
[2017-10-26] MEDS ORDERED: ACETAMINOPHEN/HYDROcodone 325 MG/5 MG TAB PO ONE (18:15)
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
[2017-10-26] MEDS ORDERED: BACL10TA PO (21:05)
[2017-10-26] MEDS ORDERED: DICL75TA PO (21:05)
[2017-10-26 21:21] VITALS: BP 120/68
== END 2017-10-26 21:24 | disposition home or self-care (01) ==
LOC: NEPD 17:45
DX: S66.912A Strain of unspecified muscle, fascia and tendon at wrist and hand level, left hand, initial encounter (principal); S46.911A Strain of unspecified muscle, fascia and tendon at shoulder and upper arm level, right arm, initial encounter; S60.511A Abrasion of right hand, initial encounter; S50.311A Abrasion of right elbow, initial encounter; V23.9XXA Unspecified motorcycle rider injured in collision with car, pick-up truck or van in traffic accident, initial encounter
CPT/HCPCS: 72125; 73030; 73080; 73110